=== PATIENT | female | born 1980 | race Hispanic/Latino ===

== ENCOUNTER 2019-08-26 15:32 | Emergency (ER) | payer OTHER ==
[2019-08-26] MEDS ORDERED: KETOROLAC TROMETHAMINE 30MG/ML ONE (16:05)
[2019-08-26] MEDS ORDERED: CYCLOBENZAPRINE HCL 10 MG TABLET ONE (16:05)
== END 2019-08-26 17:04 | disposition home or self-care (01) ==
LOC: EDH 15:32
DX: S13.4XXA Sprain of ligaments of cervical spine, initial encounter (principal); M54.6 Pain in thoracic spine; E11.9 Type 2 diabetes mellitus without complications; I10 Essential (primary) hypertension; Z98.890 Other specified postprocedural states; V49.59XA Passenger injured in collision with other motor vehicles in traffic accident, initial encounter; Y93.89 Activity, other specified; Y92.89 Other specified places as the place of occurrence of the external cause; Y99.8 Other external cause status
CPT/HCPCS: 70450; 72125; 96372; 99285; J1885